=== PATIENT | female | born 2005 ===

== ENCOUNTER 2024-07-18 12:09 | Emergency (ER) | payer SELFPAY ==
[2024-07-18 12:19] VITALS: BP 98/62; PULSE 66
[2024-07-18 12:44] LABS: APPEARANCE,URINE SLIGHTLY CLOUDY (CLEAR); BILIRUBIN,URINE NEGATIVE (NEGATIVE); COLOR,URINE YELLOW (YELLOW); GLUCOSE,URINE NEGATIVE (NEGATIVE); KETONES,URINE NEGATIVE (NEGATIVE); LEUKOCYTE ESTERASE,URINE TRACE (NEGATIVE); NITRITE,URINE NEGATIVE (NEGATIVE); OCCULT BLOOD,URINE NEGATIVE (NEGATIVE); PH,URINE 7.5 (5.0-9.0); PROTEIN,URINE 30 (NEGATIVE)
[2024-07-18 13:01] LABS: BACTERIA,URINE FEW /HPF (0-FEW/HPF); EPITHELIAL CELLS,URINE MANY /HPF (NOT SEEN); MUCUS,URINE MODERATE /LPF (NOT SEEN); RBC,URINE 0-5 /HPF (0-5)
[2024-07-18] MEDS: Take Home: Phenazopyridine 95 MG Tab, 4 Tab Pack PO ONE ×2 (13:31→13:33)
[2024-07-18] MEDS: Take Home: Ciprofloxacin HCl 500 MG, 6 Tab Pack PO ONE (13:33)
== END 2024-07-18 13:47 | disposition home or self-care (01) ==
LOC: DL.ED 12:09
DX: N30.00 Acute cystitis without hematuria (principal); F17.210 Nicotine dependence, cigarettes, uncomplicated; Z88.1 Allergy status to other antibiotic agents; Z79.899 Other long term (current) drug therapy
CPT/HCPCS: 81001; 81025; 87086; 99283; A9270-GY